=== PATIENT | female | born 1990 | race Caucasian/White ===

== ENCOUNTER → 2018-03-16 | Outpatient (CLI) | payer SELFPAY ==
[2016-12-02 05:30] VITALS: BMI 25.3
[~2018-03-16] MED LIST: BIOT1TAB13 PO; DOCU-416 PO; FLU150 PO; FLUC150T40 PO; IBUP800T37 PO; LEVO1IUD2 IY; METR-1 PO; MULT-865 PO; NO MEDS; OXYC-865 PO; PREN-127 PO; [UNRECOGNIZED DRUG - CODE] PO
== END ==
LOC: LAB 14:59
PROVIDERS: ATTEND Obstetrics & Gynecology
DX: Z11.3 Encounter for screening for infections with a predominantly sexual mode of transmission (principal)
CPT/HCPCS: 87491; 87591